=== PATIENT | female | born 1955 | race Caucasian/White ===

== ENCOUNTER → 2016-06-22 | Outpatient (CLI) | payer BC ==
[~2016-06-22] MED LIST: ERGO500037 PO; LEVO100T PO; MULT-513 PO; OPTIRAY 320 IV PRN; PROC1TAB5 PO; Prednisone PO
--- NOTE | 2016-06-22 13:47 | DIAGNOSTIC IMAGING REPORT ---
CT OF THE CHEST WITHOUT IV CONTRAST CLINICAL HISTORY: Diffuse large B-cell lymphoma. COMPARISON STUDY: PET/CT January 28, 2015. CT DOSE: 308.29 mGy.cm TECHNIQUE: Axial images of the chest were obtained without IV contrast. Images were reviewed in the axial, sagittal, and coronal planes. IV contrast was not administered for this examination. FINDINGS: No enlarged axillary, mediastinal or hilar lymph nodes are present. The size of the heart is normal. There is no pericardial effusion. Central airways are patent. There are minimal tree-in-bud opacities within the left lower lobe. Linear opacity along the right minor fissure suggest atelectasis or scarring. There is mild emphysema. No pneumothorax or pleural effusion is present. No suspicious osseous lesion is present. The sizes spleen is at the upper limits of normal. A 1.7 cm right adrenal nodule measures less than water attenuation. This is unchanged since PET/CT of January 28, 2015. This is benign. The previously described left retroperitoneal mass has markedly decreased in size since prior exam. It now measures 2.5 cm and is partially calcified. 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 A splenule is noted. IMPRESSION: 1. No thoracic lymphadenopathy. 2. Marked decrease in size of the previously described left retroperitoneal mass which is partially calcified. This represents treated lymphoma. 3. Minimal tree-in-bud opacities within the left lower lobe which favors a mild infectious bronchiolitis. Electronically signed by: Iker Nguyen M.D. 06/22/2016 1:46 PM Dictated Date/Time: 06/22/2016 1:36 PM
== END | disposition home or self-care (01) ==
LOC: C.CTS 13:05
PROVIDERS: ATTEND Family Medicine
DX: C83.30 Diffuse large B-cell lymphoma, unspecified site (principal)